=== PATIENT | female | born 1945 | race Caucasian/White ===

== ENCOUNTER → 2022-02-06 11:37 | Outpatient (CLI) | payer OTHER, SELFPAY ==
[2022-02-06 12:25] LABS: COVID19 -Nasal RAPID Negative (Negative)
== END ==
PROVIDERS: PCP Family Medicine; Visit Provider Surgery
DX: Z01.812 Encounter for preprocedural laboratory examination; Z20.822 Contact with and (suspected) exposure to COVID-19
CPT/HCPCS: 87635; C9803

== ENCOUNTER → 2022-02-07 07:43 | Outpatient (CLI) | payer OTHER, SELFPAY ==
--- NOTE | 2022-02-07 07:46 | DI.NM.S_ITS ---
PROCEDURE: NM SENTINEL NODE INJECT ONLY RADIOPHARMACEUTICAL: 0.5-1.0 mCi Millipore filtered Tc-99m sulfur colloid. INDICATIONS: Left breast cancer COMPARISON: [facility], , POST PROCEDURE MAMMOGRAM, 01/04/2022, 11:29. Outside Facility, , US BREAST NDL CORE BIOPSY LT, 01/04/2022, 10:44. Outside Facility, , LEFT BREAST, 12/05/2021, 13:17. PROCEDURE: The area around the nipple was prepped and draped in a sterile fashion. Tc-99m sulfur colloid was injected intra-dermally around the outer edge of the areola in the left breast. No image was obtained. IMPRESSION: Administration of radiotracer into the left breast periareolar region for intra-operative sentinel lymph node localization. Dictated by: Candido Ngo M.D. on 02/07/2022 at 11:12 Approved by: Candido Ngo M.D. on 02/07/2022 at 11:12
== END ==
PROVIDERS: PCP Internal Medicine; Referring Provider Surgery; Visit Provider Surgery
DX: C50.412 Malignant neoplasm of upper-outer quadrant of left female breast (principal); Z17.0 Estrogen receptor positive status [ER+]
CPT/HCPCS: 38792; A9541

== ENCOUNTER 2022-02-07 07:46 | Day surgery (SDC) | payer OTHER, SELFPAY ==
[2022-01-31 08:26] VITALS: BMI 29.2
[2022-02-07] VITALS (7 sets, daily range): BP systolic 101–173; BP diastolic 46–87; PULSE 61–85; RESP 14–24; TEMP 36.1–36.9; O2SAT 91–99; BMI 30.2
--- NOTE | 2022-02-07 | PATH_ITS ---
[facility] Accession Number: [id number] . 01 Material submitted: . PART A: lymph node - LEFT SENTINEL LYMPH NODE PART B: breast - LEFT BREAST LUMPECTOMY (SHORT STITCH = SUPERIOR, LONG STITCH = LATERAL) PART C: breast - POSTERIOR MARGIN #1 PART D: breast - ADDITIONAL MARGIN #2 PART E: breast - ADDITIONAL MARGIN #3 . 01 Clinical history: . MALIGNANT NEOPLASM OF UNSPECIFIED OF LEFT FEM . 01 Diagnosis: A. Left [place] Lymph Node, Resection: One lymph node positive for metastatic carcinoma by immunohistochemistry studies (05/20). . B. Left Breast Lumpectomy: Positive for invasive mammary carcinoma. Please see Cancer Case Summary, below. . C. Posterior Margin #1, Excision: Negative for tumor. . D. Additional Margin #2, Excision: Negative for tumor. . E. Additional Margin #3, Excision: Four lymph nodes, negative for metastatic carcinoma by immunohistochemistry studies (0/4). Background predominantly fibroadipose tissue with biopsy changes. . . CANCER CASE SUMMARY: . Specimen Procedure: Excision. Specimen laterality: Left. . Tumor Tumor site: [place] between lower outer and upper outer quadrants at 3 o'clock, 7 cm from nipple per previous imaging report. Mass #1 (8 mm in slice 13 of 19) and mass #2 (5 mm in slice 14 of 19) are in immediately adjacent slices at the amador-lateral aspect of the tissue near the guidewire tip per gross examination. . Mass #1, slice 13 . 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 . Histologic grade: Glandular differentiation: 3/3 Nuclear pleomorphism: 2/3 Mitotic rate: 1/3 Overall grade: Grade 2 (6/9) . Tumor size: 8 mm. . Tumor focality: Unifocal; the two histologically distinct masses are adjacent in slices 13 and 14, apparently less than 5 mm apart. . Ductal carcinoma in situ: Not identified. Minute focus of atypical ductal hyperplasia present at the periphery of invasive tumor. . Tumor extent: Not applicable (skin and nipple not submitted; possible scant skeletal muscle tissue in part D is negative for tumor; electrocautery artifact is obscuring). . Lymphovascular invasion: Not identified. . Microcalcifications: Not identified. . Treatment effect in the breast: No known presurgical therapy. . Margins: . Margin status for invasive carcinoma mass #1: Margins negative for tumor. Nearest margin is lateral (1 mm). Anterior: 3 mm. Medial: Greater than 10 mm. Inferior: Greater than 10 mm. Superior: Greater than 10 mm. Posterior: Greater than 10 mm. . . . Mass #2 (slice 14): . Histologic type: Tubular carcinoma. . Histologic grade: Glandular differentiation: 1/3 Nuclear pleomorphism: 1/3 Mitotic activity: 1/3 Overall grade: Grade 1 (3/9) . Tumore size: 5 mm . Ductal carcinoma in-situ: Not identified. One minute focus of ADH present at periphery of invasive tumor. . Tumor extent: Not applicable (skin and nipple not submitted; possible scant skeletal muscle tissue in part D is negative for tumor. Electrocautery artifact is obscuring). . Lymphovascular involvement: Not identified. . Microcalcifications: Not identified. . Treatment effect: No known presurgical therapy. . Margin staus for invasive carcinoma mass #2: Margins negative for tumor. Closest margin is anterior: less than 1 mm. Lateral: 1 mm. Posterior: Greater than 10 mm. Superior: Greater than 10 mm. Inferior: Greater than 10 mm. Medial: Greater than 10 mm. . Regional lymph nodes: Present; tumor present in one regional lymph node. Number of lymph nodes with macrometastasis: 0. Number of lymph nodes with micrometastasis: 1. Number of lymph nodes with isolated tumor cells: 0. Size of largest lymph node metastatic deposit: 2 mm. Extranodal extension: Not identified. Total number of lymph nodes examined (sentinel and non-sentinel): 5. Number of sentinel nodes examined: 1. . Pathologic stage classification (pTNM, AJCC 8th Edition): pT1b(2) pN1mi(sn) . Additional findings: Needle localization wire tip anterolateral, specimen B; Changes consistent with previous instrumentation; fibroadenomatous and fibrocystic changes. Additional margin tissue (parts D and E) are from the posterior aspect of the lumpectomy, per operative report, and are negative for tumor. MRV 02/14/2022 1607 Local . 01 Electronically signed: . Stephenie Staton MD, Pathologist NPI- [id number] . 01 Gross description: . A. Received in formalin labeled with the patient's name and left sentinel lymph node and consists of a lymph node candidate with attached adipose, all measuring 2.3 x 1.2 x 0.7 cm. A single blue-stained lymph node candidate is identified measuring 1.3 x 0.9 x 0.6 cm. Sectioning reveals a blue-stained finely granular cut surface. The fat is removed and the lymph node is submitted entirely in cassettes A1-A3. . The specimen was removed on 02/07/2022 and placed in formalin at 1350 hours, cold ischemic time cannot be calculated, total fixation time is 61.5 hours. . B. Received: In formalin labeled with left breast lumpectomy short = superior, long = lateral: . Specimen: Left lumpectomy. . Weight: 115 grams. . Measurement: 9.2 cm anterior to posterior, 2.9 cm from medial to lateral, and 11.2 cm superior to inferior. . Skin ellipse: Absent. . Wire: Present, penetrating at the superior side and terminating in the anterolateral area. . Margins: Oriented with a short suture superior and long lateral suture per the requisition, and inked as follows: anterior = yellow, posterior = black, medial = blue, lateral = green, superior = orange, inferior = red. . Sliced: Superior to inferior into 19 (3 mm) slices. . Lesion: One lesion identified. . Lesion #1 Description: Hard, white, fairly well circumscribed lesion. Size: 0.8 x 0.6 x 0.5 cm Slices involved: 13 and 14. Biopsy site: Not identified. Distance to margins: Less than 0.1 cm to the lateral margin, 0.1 cm to the anterior margin, 1.3 cm to the medial margin, and greater than 1 cm from all remaining margins. . Other: The remaining cut surfaces consist of yellow, lobulated adipose with [place] to white fibrous tissue occupying approximately 20% of the cut surface. No additional lesions are identified. . Fixation time: The specimen was removed on 02/07/2022 at 1410 hours, cold ischemic time cannot be calculated, total fixation time is approximately 61 hours. . SECTIONS: B1: Dental Lab Technician slice 1 superior margin perpendicular. B2: Dental Lab Technician slice 5 anterior and medial margins. B3: Dental Lab Technician slice 7 lateral and posterior margins. B4: Dental Lab Technician slice 12 to include anterior, medial and lateral margins with no identifiable tumor. B5: Slice 13 lesion to include anterior, medial and lateral margins. B6: Dental Lab Technician slice 14 with lesion to include anterior, medial and lateral margins. B7: Dental Lab Technician slice 15 no lesion to include anterior, medial and lateral margins. B8: Dental Lab Technician slice 16 to include medial, lateral and posterior margins. B9: Dental Lab Technician sli8ce 19 inferior margin perpendicular. . C. Received: In formalin labeled with posterior margin #1 short = superior, long = lateral ink = true posterior. . Specimen: Left new margin lumpectomy. . Weight: 18 grams. . Measurement: 8.9 cm medial to lateral, 4.3 cm superior to inferior, 0.8 cm anterior to posterior. . Skin ellipse: Absent. . Wire: Absent. . Margins: Oriented with a short suture superior, a long suture lateral, and blue ink on the true posterior margin, and is inked as follows: inked true margin = blue, opposite margin = black. . Sliced: Medial to lateral into 16 (4 mm) slices. . Lesions: None identified. . Other: The cut surfaces consist of yellow, lobulated adipose tissue with pink fibrous tissue occupying less than 10% of the cut surface. No biopsy sites or lesions are identified. . Fixation time: The specimen was removed on 02/07/2022 at 1445 hours, cold ischemic time cannot be calculated, total fixation time is approximately 59 hours. . SECTIONS: C1-C2: Slice 1 perpendicular. C3: Slice 2. C4: Slice 3. C5: Slice 4. C6: Composite slice 5. C7: Composite slice 6. C8: Composite slice 7. C9: Composite slice 8. C10: Slice 9. C11: Slice 10. C12: Slice 11. C13: Slice 12. C14: Slice 13. C15: Slice 14. C16: Slice 15. C17: Slice 16 perpendicular. . D. Received: In formalin labeled with additional margin #2 short = superior, long = lateral, ink = true posterior. . Specimen: A left additional posterior margin that is slightly disrupted on the medial surface. The surface consists of yellow lobulated adipose tissue with an area of pink fibrous tissue. . Weight: 57 grams. . Measurement: 12.5 cm from medial to lateral, 3.7 cm from anterior to posterior, 2.1 cm from superior to inferior. . Skin ellipse: Absent. . Wire: Absent. . Margins: Oriented with a short suture superior, a long suture lateral, and ink = true posterior margin. Due to the slightly disrupted nature of the specimen, orientation is approximate. The blue ink is on the pink fibrous area and this area is inked blue while the remaining areas of adipose are inked black. . Sliced: Medial to lateral into 29 slices. . Lesions: No discrete lesions are identified, however, the area inked blue and designated true posterior margin has pink, rubbery fibrous tissue within slices 13-23. No biopsy sites are identified. . Other: The remaining cut surfaces consist of yellow, lobulated adipose tissue with pink fibrous tissue occupying less than 10% of the cut surface. No lesions are grossly identified. . Fixation time: The specimen was removed on 02/07/2022 at 1445 hours, cold ischemic time cannot be calculated, total fixation time is approximately 59 hours. . SECTIONS: D1: Dental Lab Technician slice 1 perpendicular. D2: Slice 7. D3: Slice 13. D4: Dental Lab Technician slice 14. D5: Dental Lab Technician slice 15. D6: Dental Lab Technician slice 16. D7: Dental Lab Technician slice 17. D8: Slice 18. D9: Dental Lab Technician slice 19. D10: Dental Lab Technician slice 20. D11: Entire slice 21. D12: Entire slice 22. D13: Dental Lab Technician slice 23. D14: Dental Lab Technician slice 27. D15: Dental Lab Technician slice 29 perpendicular. . E. Received: In formalin labeled with additional margin #3 short = superior, long = lateral, ink = true posterior. . Specimen: Left lumpectomy new margin. . Weight: 37 grams. . Measurement: 7.8 cm from medial to lateral, 6.3 cm from superior to inferior, 2.0 cm from anterior to posterior. . Skin ellipse: Absent. . Wire: Absent. . Margins: Oriented as follows: short stitch = superior, long stitch = lateral, ink = true posterior margin, and is inked as follows: true margin = blue, opposite margin = black. . Sliced: Medial to lateral into 10 slices. . Lesion #1 Description: Firm, fairly well circumscribed white circular lesion. Size: 0.5 x 0.4 x 0.4 cm. Slices involved: Slice #2 only. Biopsy site: Absent. Distance to margins: Distance to blue true margin 0.2 cm, distance to black old margin 1.1 cm. . Lesion #2 Description: White, firm tissue with adjacent pale yellow pinpoint areas of discoloration. Size: 3.1 x 2.8 x 1.5 cm. Slices involved: Slices 6-10. Biopsy site: Absent. Distance to margins: Grossly approaches both blue true margin and black old margin. . Distance between lesions: 1.2 cm. . Other: The remaining cut surfaces consist of yellow, lobulated adipose tissue with pink fibrous tissue occupying approximately 10% of the cut surface. No additional discrete masses or lesions are grossly identified. . Fixation time: The specimen was removed on 02/07/2022 and placed in formalin at 1445 hours, cold ischemic time cannot be calculated, total fixation time is approximately 59 hours. . SECTIONS: E1-E3: Slice 1 perpendicular. E4-E5: Slice 2. E6-E7: Slice 3. E8-E9: Slice 4. E10-E11: Slice 5. E12-E13: Slice 6. E14-E15: Slice 7. E16-E17: Slice 8. E18-E19: Slice 9. E20-E21: Slice 10 perpendicular. ([id number]) /JL 02/09/2022 2033 Local . 01 Microscopic: . An immunohistochemistry panel is performed to further evaluate the cells of interest. The control stains show appropriate reactivity. . RESULTS: Blocks A1, A2 and A3: BIANCA: Positive (A3), consistent with lymph node metastasis. . Block B5: GATA3: Positive. E-cadherin: Attenuated, consistent with pleomorphic lobular carcinoma. . Block B6: GATA3: Positive. E-cadherin: Positive. . Findings are consistent with ductal carcinoma of breast origin. . Blocks, E4, E7, E11, E14, E15, E16, E17, E18, E20 and E21 BIANCA: Negative. . Mass #1 (Slice 13, Slide B5): [facility] BREAST BIOMARKER REPORTING TEMPLATE: . Estrogen Receptor (ER) Status: Positive. Average intensity of staining: Strong, greater than 95% of nuclei. Primary antibody: SP1 Progesterone Receptor (PgR) Status: Positive. Average intensity of staining: Weak (approximately 1% of tumor nuclei). Primary antibody: 1E2 HER2 (by immunohistochemistry): Negative at 1+. Percentage of cells with uniform intense complete membrane stainin Primary antibody: 4B5 . . Cold Ischemia and Fixation Times: Please see gross description. Total fixation time is approximately 61 hours. Meets requirements in the latest version of the ASCO/CAP guidelines. Testing performed on Block Number: B5 . Mass #2 (Slice 14, Slide B6): CAP BREAST BIOMARKER REPORTING TEMPLATE: . Estrogen Receptor (ER) Status: Positive. Average intensity of staining: Strong, greater than 95% of nuclei. Primary antibody: SP1 Progesterone Receptor (PgR) Status: Negative. Average intensity of staining: Weak (less than 1% of tumor nuclei) Primary antibody: 1E2 HER2 (by immunohistochemistry): Negative at 1+. Percentage of cells with uniform intense complete membrane stainin. Primary antibody: 4B5 . Cold Ischemia and Fixation Times: Please see gross description. Total fixation time is approximately 61 hours. Meets requirements in the latest version of the ASCO/CAP guidelines. Testing performed on Block Number: B6. . TECHNICAL NOTE: The scoring criteria for breast biomarkers by immunohistochemistry is based on the current ASCO/CAP guidelines (Yevgeniy et al, Arch Pathol Lab Med 2010: 134(6): 907-922 / Miguel STARKS et al, Arch Pathol Lab Med 2014: 138(2):241-256). Deparaffinized sections of formalin fixed tissue (along with appropriate positive controls) are incubated with the above antibody(s). Using the automated [place] stainer, tissue is incubated with the designated antibody* which is then localized by a non-biotin, dual polymer detection system. The external controls are reviewed for appropriate reactivity and found to be adequate. Results on the target cell population are indicated above. These tests have not been validated on decalcified tissue. . * This test was developed and its performance characteristics determined by [employer]. It has not been cleared or approved by the U.S. Food and Drug Administration. The FDA has determined that such clearance or approval is not necessary. This test is used for clinical purposes. It should not be regarded as investigational or for research. . 01 Pathologist provided ICD-10: C50.912 . 01 CPT . 553660, 350858, 315330, 294322, 259490, [id number], 200750, 556287, 931080, 496740, 248251, 060552 Performed at: 01 [facility] [address] [place] [address] [id number] MD Sumit Cuevas MD Phone: [phone]
--- NOTE | 2022-02-07 | DI.MG.S_ITS ---
WIRE LOCALIZATION LEFT BREAST WITH POST DIGITAL MAMMOGRAPHIC IMAGIN02/07/2022 CLINICAL: Left breast cancer. Correlation is made to exams dated: 01/04/2022 ultrasound biopsy, 01/04/2022 mammogram, 12/05/2021 mammogram, and 05/05/2019 mammogram - [facility]. A wire localization was performed for the marker clip located in the left breast at 3 o'clock middle depth. The skin was prepped in the usual manner. A wire was inserted into the targeted area. Post placement digital mammographic imaging demonstrates the tip 0.5cm superior from the geometric center of the targeted area. IMPRESSION: WIRE LOCALIZATION Wire localization for the marker clip in the left breast at 3 o'clock middle depth was successful. This exam was interpreted at Station ID: [id number]. Olga martínez/:02/07/2022 15:38:13
--- NOTE | 2022-02-07 | DI.MG.S_ITS ---
SPECIMEN LEFT BREAST: 02/07/2022 CLINICAL: Left breast specimen. Correlation is made to exams dated: 02/07/2022 localization - [facility], 01/04/2022 ultrasound biopsy, and 01/04/2022 mammogram - [facility]. 4 specimens were imaged for the previous biopsy site located in the left breast at 3 o'clock middle depth. IMPRESSION: SPECIMEN The imaged specimens include the distal portion of the localization wire and do not include biopsy clip. This exam was interpreted at Station ID: [id number]. Olga martínez/:02/07/2022 15:39:25
--- NOTE | 2022-02-07 12:30 | PM.PREOP ---
Pre-operative Note Interval Note History & Physical reviewed/Exam performed by Physician: Yes Changes to H&P: No
--- NOTE | 2022-02-07 13:09 | PM.OP.1 ---
Operative Date/Time/Diagnoses Date of procedure: 02/07/22 Time of procedure: 13:09 Pre-op diagnosis: Left breast cancer Post-op diagnosis: same Procedure & Clinicians Procedure: Left lumpectomy with sentinel lymph node biopsy Same procedure as scheduled: Yes Indications: 76-year-old woman with left breast cancer here for breast conserving therapy. Surgeon: Jasvir Huff Click Yes if Unassisted: Yes Anesthesia Type: General Operative Notes Findings: Single prominent blue sentinel lymph node. Specimen contains the wire with an associated firm approximately 1 cm nodule near the tip. Despite this the clip is not visualized on x-ray. An additional 3 margins were taken and neither of these demonstrated the clip. Specimen(s): other (Left lumpectomy short stitch superior long stitch lateral. Left sentinel lymph node. Three additional margins from the lumpectomy site all marked short stitch superior, long stitch lateral posterior true margin inked.) Estimated Blood Loss (mL): 50 Procedure in detail: The patient underwent needle localized prior to the operation. They were brought to the operating room and placed supine on the table. Bilateral lower extremity compression devices were applied. They were intubated with an LMA. 1 ml of methlyene blue mixed w 4 ml saline was injected into the dermal space around the areola and massaged into the tissue for 5 minutes. They were prepped and draped in sterile fashion. Time-out was performed. An incision was made in the left axilla 2 cm below the hair bearing region. Dissection was carried down through the subcutaneous tissue towards the chest wall guided by the Neoprobe. One sentinel node was found, it was blue in its appearance. The node was removed the tissue with electrocautery.. The background count following removal of the node was minimal there were no other blue appearing nodes or lymphadenopathy. Hemostasis was achieved. The subcutaneous tissue was closed with vicryl the skin with 4-o monocryl followed by dermabond. A curvilinear incision on the superior aspect of the left breast was made and subcutaneous tissues were divided. The localizing wire was identified and then brought back within the incision. The end of the wire was within a posterior depth breast mass of approximately 1-2 cm. The mass was excised with the wire. Specimen was marked short stitch superior long stitch lateral. Imaging demonstrated that the specimen contained the wire but not the clip. This was odd given that the wire was associated with a palpable mass. I took 3 additional margins from within the lumpectomy cavity each marked short stitch superior long stitch lateral and the true posterior margin was inked. Despite this the clip was not demonstrated to be within any of the specimens. At this point nearly 30% of the left breast had been excised. I considered my options which included (1) C-arm to locate possible clip within the remaining breast tissue( 2) excising further breast tissue or (3) close in without removal of further tissue. I discussed with the radiologist who told told me it would be unlikely to identify the clip with C-arm given its small size. Given this and the fact that we had already removed a considerable amount of left breast tissue and there was a palpable mass within the 1st specimen I decided to proceed with closure. The subcutaneous tissues were reapproximated with 3 0 Vicryl sutures skin closed with Monocryl followed by application of Dermabond. The counts were correct. They emerged from anesthesia and were transfered to recovery in stable condition. Complications: none Post-operative Condition: stable Disposition: same day surgery
[2022-02-07] MEDS: METHYLENE BLUE 50 MG/10 ML VIAL 25 MG INJ (13:25)
[2022-02-07] MEDS: CEFAZOLIN 2 GM/100 ML PREMIX 100 ML IV (13:30)
[2022-02-07] MEDS: BUPIVACAINE 0.25% (PF) VIAL 30 ML INJ (13:31)
--- NOTE | 2022-02-07 14:46 | SUR.OPER ---
Supine on padded OR bed, head on pillow, arms secured on padded arm boards at <90 degrees abduction, legs uncrossed, pillow under knees safety belt at thigh.
[2022-02-07] MEDS: LACTATED RINGERS 1,000 ML 100 ML IV (14:54)
[2022-02-07] MEDS: fentaNYL 100 MCG/2 ML INJ IV (15:45)
[2022-02-07] MEDS: OXYCODONE IR 5 MG TABLET PO (15:54)
== END 2022-02-07 16:45 | disposition home or self-care (01) ==
PROVIDERS: PCP Internal Medicine; Referring Provider Surgery; Visit Provider Surgery
PROC: (CPT 38500; principal; 2022-02-07 13:15)
DX: C50.912 Malignant neoplasm of unspecified site of left female breast (principal); Z17.0 Estrogen receptor positive status [ER+]; C77.3 Secondary and unspecified malignant neoplasm of axilla and upper limb lymph nodes
CPT/HCPCS: 38500; 19125; 19281; 38792; 76098; 82962; A9541; C1819; J0690; J1100; J2250; J2405; J2704; J3010; Q9968

== ENCOUNTER → 2022-11-15 14:56 | Outpatient (CLI) | payer OTHER, SELFPAY ==
[2022-11-15 16:39] LABS: Creatinine Urine Random 166.6 mg/dL
[2022-11-15 16:43] LABS: Microalbumi Creatinin Ratio Ur 28.8 ug/mg CR (<30); Microalbumin Urine Random 4.8 mg/dL (0-1.6)
[2022-11-16 05:54] LABS: Labcorp Hemoglobin (Hb) A1c 9.7 % (4.8-5.6)
== END ==
PROVIDERS: PCP Family Medicine; Referring Provider Family Medicine; Visit Provider Family Medicine
DX: E11.9 Type 2 diabetes mellitus without complications (principal); I10 Essential (primary) hypertension
CPT/HCPCS: 36415; 82043; 82570; 83036

== ENCOUNTER → 2023-02-11 12:33 | Outpatient (CLI) | payer OTHER, SELFPAY ==
--- NOTE | 2023-02-11 | DI.RAD.S_ITS ---
Bone Density Report Name: BRAULIO WASHINGTON Age: 77 Sex: Female Ethnicity: White Date of : 1945 Indication: postmenopausal; screening for osteoporosis; history of glucocorticoids; Referring Provider: CAROLINA MAGUIRE Study: Bone densitometry was performed. Exam Date: February 11, 2023 Accession number: [id number] Bone Density: Region BMD T-score Z-score Classification AP Spine(L1, L2, L3) 0.857 -1.5 1.0 Osteopenia Femoral Neck (Left) 0.588 -2.3 -0.2 Osteopenia Total Hip (Left) 0.807 -1.1 0.8 Osteopenia Femoral Neck (Right) 0.614 -2.1 0.1 Osteopenia Total Hip (Right) 0.798 -1.2 0.7 Osteopenia Total Hip Mean 0.803 -1.2 0.8 Osteopenia World Health Organization criteria for BMD impression classify patients as: Normal (T-score at or above -1.0), Osteopenia (T-score between -1.0 and -2.5), or Osteoporosis (T-score at or below -2.5). 10-year Fracture Risk(1): Major Osteoporotic Fracture 25% Hip Fracture 12% Reported Risk Factors: [place] (), Neck BMD=0.588, BMI=29.3, smoking, glucocorticoids (1) FRAX(R) Version 3.08. Fracture probability calculated for an untreated patient. Fracture probability may be lower if the patient has received treatment. Impression: The patient has low bone mass, based on the Left Femoral Neck T-score. The patient has an estimated ten-year risk of hip fracture of 12% and an estimated ten-year risk of major fracture of 25%, based on the WHO FRAX algorithm. The patient has risk factors, including: smoking, history of glucocorticoid therapy. Discussion: BONE DENSITY IS LOW AT ONE OR MORE SKELETAL SITES. THE PATIENT'S BMD AND CLINICAL RISK FACTORS CONTRIBUTE TO THIS PATIENT'S HIGH RISK OF FRACTURE. This patient's lowest T-score is low at one or more skeletal sites. It meets the World Health Organization's (WHO) criteria for low bone mass (T-score between -1.0 and -2.5). The patient's 10-year risk of hip fracture and 10 year risk of a major osteoporotic fracture as calculated by FRAX exceeds the threshold where pharmacological therapy is recommended by the National Osteoporosis Foundation (NOF). However, all treatment decisions require clinical judgment and consideration of individual patient factors, including patient preferences, comorbidities, previous drug use, risk factors not captured in the FRAX model (e.g., frailty, falls, vitamin D deficiency, increased bone turnover, interval significant decline in bone density) and possible under or overestimation of fracture risk by FRAX. The patient should follow a healthful lifestyle (good nutrition with adequate calcium and vitamin D, and appropriate weight-bearing exercise). Follow-Up: Consider a repeat BMD and Vertebral Fracture Assessment (VFA) exam in 2 years or sooner if medically necessary, to reassess this patient's status. Reported by: JOCY SWEENEY M.D. on 02/11/2023 1:13:00 PM.
== END ==
PROVIDERS: PCP Family Medicine; Referring Provider Internal Medicine; Visit Provider Internal Medicine
DX: C50.812 Malignant neoplasm of overlapping sites of left female breast; M85.89 Other specified disorders of bone density and structure, multiple sites; F17.200 Nicotine dependence, unspecified, uncomplicated; I74.8 Embolism and thrombosis of other arteries; Z17.0 Estrogen receptor positive status [ER+]; Z92.241 Personal history of systemic steroid therapy
CPT/HCPCS: 77080